=== PATIENT | female | born 1985 | race Caucasian/White ===

== ENCOUNTER 2017-01-09 21:11 | Emergency (ER) | payer BC, OTHER ==
[2017-01-09 21:24] VITALS: BP 123/71
--- NOTE | 2017-01-09 22:29 | EDM.PDOC ---
ED HPI GENERAL MEDICAL PROBLEM - General Chief Complaint: Allergic Reaction Stated Complaint: POSS REACTION TO CHEMO Time Seen by Provider: 01/09/17 21:37 Source of Information: Reports: Patient, Family (), RN Notes Reviewed History Limitations: Reports: No Limitations - History of Present Illness INITIAL COMMENTS - FREE TEXT/NARRATIVE: The patient states that she self-injects methotrexate weekly for treatment of her psoriasis, since September 2016, prescribed per Dr. Marie from [facility]. Today around 20:00 she injected her methotrexate in her right inner thigh, using a needle about 1.5 inches in length. Shortly thereafter, she developed a burning sensation at the injection site which has since spread down to just below her right knee, and she has also noticed a yellow discoloration immediately adjacent to the injection site. No prior similar reactions. The patient denies having any other problems, including rash, pruritus, dyspnea , shortness of breath, or angioedema. Right Upper Leg Pain Score (Numeric/FACES): 5 - Related Data Allergies Allergy/AdvReac Type Severity Reaction Status Date / Time azathioprine Allergy Nausea and Verified 01/09/17 21:17 Vomiting nickel Allergy Rash Verified 01/09/17 21:17 Home Meds: Home Meds FLUoxetine [PROzac] 20 mg PO DAILY 10/03/15 [History] Acetaminophen/HYDROcodone [Lortab 500-5 MG] 1 tab PO Q6H #20 tablet 11/28/15 [Rx ] Dicyclomine HCl [Bentyl] 20 mg PO Q6HR #20 tablet 11/28/15 [Rx] Mesalamine [Lialda] 4 tab PO DAILY 11/28/15 [History] Acetaminophen/HYDROcodone [[place] 325-5 MG] 1 - 2 tab PO Q6H PRN #15 tablet 06/25 [Rx] Prednisone [IMW: Prednisone] 30 mg PO DAILY 06/25/16 [History] Past Medical History HEENT History: Reports: Impaired Vision Other HEENT History: wears glasses Gastrointestinal History: Reports: Inflammatory Bowel Disease (Crohn disease and ulcerative colitis) 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 OB/BYN History: pre menopausal dysphoric disorder, breast mass, dysmenorrhea, menorrhagia, STD Neurological History: Reports: Migraines, Seizure (x 1) Psychiatric History: Reports: Mood Swings Endocrine/Metabolic History: Reports: Obesity/BMI 30+ Immunologic History: Reports: Other (See Below) (Psoriasis) - Past Surgical History GI Surgical History: Reports: Appendectomy, Colonoscopy, EGD Female Surgical History: Reports: Hysterectomy Social & Family History - Tobacco Use Smoking Status *Q: Current Every Day Smoker Years of Tobacco use: 15 Packs/Tins Daily: 0.5 Second Hand Smoke Exposure: Yes - Caffeine Use Caffeine Use: Reports: Coffee - Alcohol Use Alcohol Use History: Yes Alcohol Use Frequency: Socially - Recreational Drug Use Recreational Drug Use: Yes Drug Use in Last 12 Months: Yes Recreational Drug Type: Reports: Marijuana/Hashish Recreational Drug Use Frequency: Socially - Living Situation & Occupation Living situation: Reports: , with Spouse, with Family (2 kids) 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) ED ROS ALLERGIC REACTION - Review of Systems Review Of Systems: See Below Constitutional: Reports: No Symptoms HEENT: Reports: No Symptoms Respiratory: Reports: No Symptoms Cardiovascular: Reports: No Symptoms Endocrine: Reports: No Symptoms GI/Abdominal: Reports: No Symptoms : Reports: No Symptoms Musculoskeletal: Reports: No Symptoms Skin: Reports: No Symptoms Neurological: Reports: No Symptoms Psychiatric: Reports: No Symptoms Hematologic/Lymphatic: Reports: No Symptoms Immunologic: Reports: No Symptoms ED EXAM GENERAL NO PERIP PULSE - Physical Exam Exam: See Below Exam Limited By: No Limitations General Appearance: Alert, WD/WN, No Apparent Distress Eye Exam: Bilateral Eye: Normal Inspection Ears: Normal External Exam, Hearing Grossly Normal Nose: Normal Inspection, No Blood Throat/Mouth: Normal Inspection, Normal Lips, Normal Voice, No Airway Compromise Head: Atraumatic, Normocephalic Neck: Normal Inspection, Full Range of Motion Respiratory/Chest: No Respiratory Distress, Lungs Clear, Normal Breath Sounds, No Accessory Muscle Use Cardiovascular: Normal Peripheral Pulses, Regular Rate, Rhythm, No Gallop, No JVD, No Murmur, No Rub GI/Abdominal: Normal Bowel Sounds, Soft, Non-Tender, No Organomegaly, No Distention, No Abnormal Bruit, No Mass (Female) Exam: Deferred Rectal (Female) Exam: Deferred Back Exam: Normal Inspection, Full Range of Motion, NT Extremities: Normal Inspection, Normal Range of Motion, No Pedal Edema, Normal Capillary Refill, Other (Approximately 2 cm patch of yellow skin on the right inner 5 adjacent to a visible injection site. Nonpalpable.) Neurological: Alert, Oriented, Normal Cognition, No Motor/Sensory Deficits Psychiatric: Normal Affect Skin Exam: Warm, Dry, Intact, Normal Color, No Rash Lymphatic: No Adenopathy Course - Vital Signs Last Recorded V/S: Last Vital Signs Temp 36.7 C 01/09/17 21:18 Pulse 71 01/09/17 21:18 Resp 16 01/09/17 21:18 BP 123/71 01/09/17 21:18 Pulse Ox 97 01/09/17 21:18 - Re-Assessments/Exams Free Text/Narrative Re-Assessment/Exam: 01/09/17 22:24 The patient states that she has a burning sensation to the injection site on her right inner thigh that is spreading, as well as a yellow discoloration to the injection site. The medical literature indicates a 3-10% incidence of a burning sensation to the injection site her methotrexate, and a less than 1% hyperpigmentation, however, I don't believe that the yellowish discoloration is hyperpigmentation. The patient points out, however, that the methotrexate itself is yellow, so perhaps this is some skin infiltration. I find the patient that there is no way that we can remove the methotrexate, and I don't believe any treatment is required, as this is not allergic reaction. I would have the patient followup with her prescribing physician, Dr. Marie, in the morning. Departure - Departure Time of Disposition: 22:25 Disposition: Home, Self-Care 01 Condition: good Clinical Impression: Adverse reaction to antineoplastic and immunosuppressive drugs - Discharge Information Instructions: Drug Allergy, [id number] Forms: ED Department Discharge Additional Instructions: You were seen in the emergency room for a burning sensation to your right inner thigh, spreading, and a yellowish discoloration to the injection site of your methotrexate. The literature indicates that a burning sensation can occur in 3-10% of people who inject methotrexate. The literature indicates that less than 1% of people can have hyperpigmentation , although it is more likely that the yellowish discoloration at your injection site is infiltration of the methotrexate into your skin. These reactions are considered "adverse reactions", not allergic reactions. No medical treatment is required. We recommend that you notify Dr. Marie of your experience, in the morning. If any other problems, please do not hesitate to return to the ER.
== END 2017-01-09 22:41 | disposition home or self-care (01) ==
LOC: JD.ED 21:11
DX: T45.1X5A Adverse effect of antineoplastic and immunosuppressive drugs, initial encounter (principal); E66.9 Obesity, unspecified; Z90.49 Acquired absence of other specified parts of digestive tract; Z90.710 Acquired absence of both cervix and uterus; Z98.890 Other specified postprocedural states; F17.210 Nicotine dependence, cigarettes, uncomplicated; Z79.899 Other long term (current) drug therapy; Z88.8 Allergy status to other drugs, medicaments and biological substances
CPT/HCPCS: 99282; 99283

== ENCOUNTER 2017-08-26 14:48 | Emergency (ER) | payer BC ==
[2017-08-26] MEDS ORDERED: HYDROmorphone 1 MG/ML Syringe IVPUSH ONE (15:28)
[2017-08-26] MEDS ORDERED: Ondansetron 4 MG/2 ML SDV IVPUSH ONE (15:28)
[2017-08-26] MEDS ORDERED: Sodium Chloride 0.9% 1,000 ML IV SCH (15:30)
--- NOTE | 2017-08-26 15:40 | EDM.PDOC ---
ED HPI GENERAL MEDICAL PROBLEM - General Chief Complaint: Gastrointestinal Problem Stated Complaint: CROHN'S ISSUES Time Seen by Provider: 08/26/17 15:12 Source of Information: Reports: Patient History Limitations: Reports: No Limitations - History of Present Illness INITIAL COMMENTS - FREE TEXT/NARRATIVE: Patient is a 32-year-old female with a history of Crohn's disease and also ulcerative colitis. States she had had a flare of her Crohn's this past Friday with heavy bleeding from her rectum. Bleeding has lessened since initial onset. She's had one bowel movement today with faint blood present. Of course of frequency of defecation is worsen with eating. She's had low appetite since onset. She does receive chemotherapy shots weekly along with methotrexate and Humira. left abdomen/right groin Pain Score (Numeric/FACES): 5 - Related Data Allergies Allergy/AdvReac Type Severity Reaction Status Date / Time azathioprine Allergy Nausea and Verified 08/26/17 15:03 Vomiting nickel Allergy Rash Verified 08/26/17 15:03 Home Meds: Home Meds FLUoxetine [PROzac] 20 mg PO DAILY 10/03/15 [History] Acetaminophen/HYDROcodone [[place]une[place] 325-5 MG] 1 tab PO Q6H PRN #12 tablet 08/26/17 [Rx] Adalimumab [Humira Crohn's] 40 mg SQ ASDIRECTED 08/26/17 [History] [place] 1 tab PO ASDIRECTED 08/26/17 [History] Methotrexate Sodium [Methotrexate] 250 mg SQ WEEKLY 08/26/17 [History] Past Medical History HEENT History: Reports: Impaired Vision Other HEENT History: wears glasses Respiratory History: Reports: Asthma Gastrointestinal History: Reports: Inflammatory Bowel Disease, Other (See Below) Other Gastrointestinal History: chrohn's disease 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 OB/BYN History: pre menopausal dysphoric disorder, breast mass, dysmenorrhea, menorrhagia, STD Neurological History: Reports: Migraines, Seizure Psychiatric History: Reports: Mood Swings Other Psychiatric History: fatigue Endocrine/Metabolic History: Reports: Obesity/BMI 30+ Immunologic History: Reports: Other (See Below) Other Immunologic History: is on chem drugs for chrohn's - Past Surgical History GI Surgical History: Reports: Appendectomy, Colonoscopy, EGD Female Surgical History: Reports: Hysterectomy Social & Family History - Family History Family Medical History: Noncontributory - Tobacco Use Smoking Status *Q: Current Every Day Smoker Years of Tobacco use: 15 Packs/Tins Daily: 0.5 Second Hand Smoke Exposure: Yes - Caffeine Use Caffeine Use: Reports: None - Alcohol Use Days Per Week of Alcohol Use: 0 Number of Drinks Per Day: 0 Total Drinks Per Week: 0 - Recreational Drug Use Recreational Drug Use: Yes Drug Use in Last 12 Months: Yes Recreational Drug Type: Reports: Marijuana/Hashish Recreational Drug Use Frequency: Daily - Living Situation & Occupation Living situation: Reports: , with Spouse, with Family (2 kids) 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 Denies: Fever, Chills HEENT: Reports: No Symptoms Respiratory: Reports: No Symptoms Cardiovascular: Reports: No Symptoms GI/Abdominal: Reports: Abdominal Pain, Bloody Stool, Constipation, Diarrhea, Decreased Appetite. Denies: Hematemesis, Nausea, Vomiting : Reports: No Symptoms Musculoskeletal: Reports: No Symptoms Neurological: Reports: No Symptoms ED EXAM, GI/ABD - Physical Exam Exam: See Below Exam Limited By: No Limitations General Appearance: Alert, WD/WN, No Apparent Distress Ears: Hearing Grossly Normal Nose: Normal Inspection Throat/Mouth: Normal Voice, No Airway Compromise Head: Atraumatic, Normocephalic Neck: Normal Inspection, Supple Respiratory/Chest: No Respiratory Distress, Lungs Clear, Normal Breath Sounds, No Accessory Muscle Use, Chest Non-Tender Cardiovascular: Normal Peripheral Pulses, Regular Rate, Rhythm GI/Abdominal Exam: Normal Bowel Sounds, Soft, No Organomegaly, Distended, Tender (Throughout) Rectal (Female) Exam: Deferred Back Exam: Normal Inspection. No: CVA Tenderness (L), CVA Tenderness (R) Neurological: Alert, Oriented, CN II-XII Intact, Normal Cognition, No Motor/ Sensory Deficits Psychiatric: Normal Affect, Normal Mood Skin Exam: Warm, Dry, Intact, Normal Color, No Rash Course - Vital Signs Last Recorded V/S: Last Vital Signs Temp 97.5 F 08/26/17 14:52 Pulse 57 L 08/26/17 18:30 Resp 16 08/26/17 18:30 BP 107/72 08/26/17 18:30 Pulse Ox 96 08/26/17 18:30 - Orders/Labs/Meds Orders: Active Orders 24 hr Category Date Time Status Peripheral IV Care [RC] . DIRECTED Care 08/26/17 15:28 Active Peripheral IV Insertion Adult [OM.PC] Stat Oth 08/26/17 15:27 Ordered Labs: Laboratory Tests 08/26/17 08/26/17 08/26/17 Range/Units 16:00 16:00 17:15 WBC 6.66 (3.98-10.04) K/mm3 RBC 4.22 (3.98-5.22) M/mm3 Hgb 13.3 (11.2-15.7) gm/L Hct 38.8 (34.1-44.9) % MCV 91.9 (79.4-94.8) fl MCH 31.5 (25.6-32.2) pg MCHC 34.3 (32.2-35.5) g/dl RDW Std Deviation 44.3 (36.4-46.3) fL Plt Count 181 L (182-369) K/mm3 MPV 10.6 (9.4-12.3) fl Neut % (Auto) 52.0 (34.0-71.1) % Lymph % (Auto) 39.6 (19.3-51.7) % [place] % (Auto) 6.5 (4.7-12.5) % Eos % (Auto) 1.5 (0.7-5.8) Baso % (Auto) 0.2 (0.1-1.2) % Neut # (Auto) 3.47 (1.56-6.13) K/mm3 Lymph # (Auto) 2.64 (1.18-3.74) K/mm3 Marshall # (Auto) 0.43 H (0.24-0.36) K/mm3 Eos # (Auto) 0.10 (0.04-0.36) K/mm3 Baso # (Auto) 0.01 (0.01-0.08) K/mm3 Sodium 139 (136-145) mEq/L Potassium 4.1 (3.5-5.1) mEq/L Chloride 106 (98-107) mEq/L Carbon Dioxide 28 (21-32) mEq/L Anion Gap 9.1 (5-15) BUN 10 (7-18) mg/dL Creatinine 0.7 (0.55-1.02) mg/dL Est Cr Clr Drug Dosing 111.16 mL/min Estimated GFR (MDRD) > 60 (>60) mL/min BUN/Creatinine Ratio 14.3 (14-18) Glucose 88 (74-106) mg/dL Calcium 8.7 (8.5-10.1) mg/dL Total Bilirubin 0.5 (0.2-1.0) mg/dL AST 29 (15-37) U/L ALT 44 (14-59) U/L Alkaline Phosphatase 36 L (46-116) U/L C-Reactive Protein < 0.2 (<1.0) mg/dL Total Protein 6.6 (6.4-8.2) g/dl Albumin 3.6 (3.4-5.0) g/dl Globulin 3.0 gm/dL Albumin/Globulin Ratio 1.2 (1-2) Lipase 190 (73-393) U/L Urine Color Yellow (Yellow) Urine Appearance Clear (Clear) Urine pH 7.0 (5.0-8.0) Ur Specific [place] 1.020 (1.005-1.030) Urine Protein Negative (Negative) Urine Glucose (UA) Negative (Negative) Urine Ketones Negative (Negative) Urine Occult Blood Negative (Negative) Urine Nitrite Negative (Negative) Urine Bilirubin Negative (Negative) Urine Urobilinogen 0.2 (0.2-1.0) Ur Leukocyte Esterase Negative (Negative) Urine RBC 0-5 (0-5) /hpf Urine WBC 0-5 (0-5) /hpf Ur Epithelial Cells 0-5 (0-5) /hpf Amorphous Sediment Few H (NOT SEEN) /hpf Urine Bacteria Few (FEW) /hpf Urine Mucus Not seen (FEW) /hpf Meds: Medications Discontinued Medications Generic Name Dose Route Start Last Admin Trade Name Freq PRN Reason Stop Dose Admin Diatrizoate Meglum/Diatrizoate Sod 90 ml 08/26/17 17:19 08/26/17 17:43 Gastrografin 37% PO 08/26/17 17:20 90 ml ONETIME ONE Administration Hydromorphone HCl 1 mg 08/26/17 15:28 08/26/17 16:04 Dilaudid IVPUSH 08/26/17 15:29 1 mg ONETIME ONE Administration Hydromorphone HCl 0.5 mg 08/26/17 18:11 08/26/17 18:15 Dilaudid IVPUSH 08/26/17 18:12 0.5 mg ONETIME ONE Administration Sodium Chloride 1,000 mls @ 250 mls/hr 08/26/17 15:30 08/26/17 16:06 Normal Saline IV 250 mls/hr ASDIRECTED BETSY Administration Iopamidol 125 ml 08/26/17 17:19 08/26/17 17:44 Isovue-300 (61%) IVPUSH 08/26/17 17:20 125 ml ONETIME ONE Administration Ondansetron HCl 4 mg 08/26/17 15:28 08/26/17 16:02 Zofran IVPUSH 08/26/17 15:29 4 mg ONETIME ONE Administration Sodium Chloride 10 ml 08/26/17 15:27 08/26/17 17:44 Saline Flush FLUSH 10 ml ASDIRECTED PRN Administration Keep Vein Open - Re-Assessments/Exams Free Text/Narrative Re-Assessment/Exam: Chest x-ray revealed no acute findings. X-ray of the abdomen revealed a few air-fluid levels. Nonspecific stool pattern. Due to patient's pain on examination and history of blood in her stool with ulcerative and Crohn's disease. . Will go ahead and obtain CT of the abdomen and pelvis with oral and IV contrast.Patient request CT of the abdomen and pelvis Labs pending. Labs reviewed: CBC essentially normal. Chemistry panel essentially normal. CRP less than 0.2. Lipase 190. UA negative for infection. CT abdomen and pelvis with IV contrast impression: No acute findings. Discuss results of labs and also CT study with patient. Pain was under control but coming back now. Will order Dilaudid 0.5 mg IVP. Will discharge home with instructions as documented. Departure - Departure Time of Disposition: 18:11 Disposition: Home, Self-Care 01 Condition: Good Clinical Impression: Abdominal pain, Blood per rectum Crohns disease Qualifiers: Gastrointestinal tract location: unspecified location Digestive disease complication type: unspecified complication Qualified Code(s): K50.919 - Crohn' s disease, unspecified, with unspecified complications Ulcerative (chronic) enterocolitis Qualifiers: Digestive disease complication type: unspecified complication Qualified Code(s) : K51.019 - Ulcerative (chronic) pancolitis with unspecified complications - Discharge Information Prescriptions: Acetaminophen/HYDROcodone [Cuney 325-5 MG] 1 tab PO Q6H PRN #12 tablet PRN Reason: Pain (Severe 7-10) Instructions: Abdominal Pain, Adult, [id number] Referrals: Nel Dominguez COLLAR FELLER [Primary Care Provider] - Forms: ED Department Discharge, ED Return to Work/School Form Additional Instructions: As discussed CT of the abdomen and pelvis along with labs did not reveal any concerning findings. For pain take Cuney one tab every 6 hours as needed for severe pain. Push the fluids. Eat a low residue diet. Follow-up with primary care provider first part of next week for reevaluation as needed. Return to the ED if you develop any new or worsening symptoms. - My Orders Last 24 Hours: My Active Orders 08/26/17 15:27 Peripheral IV Insertion Adult [OM.PC] Stat 08/26/17 15:28 Peripheral IV Care [RC] . DIRECTED - Assessment/Plan Last 24 Hours: My Active Orders 08/26/17 15:27 Peripheral IV Insertion Adult [OM.PC] Stat 08/26/17 15:28 Peripheral IV Care [RC] . DIRECTED
[2017-08-26] MEDS: Sodium Chloride 0.9% 10 ML Syringe FLUSH PRN ×2 (16:00→17:44)
--- NOTE | 2017-08-26 16:44 | CR ---
Abdominal series: Supine and upright views of the abdomen were obtained as well as frontal view of the chest. Comparison: Previous abdominal x-ray of 06/25/16, no previous chest x-ray. Heart size and mediastinum are normal. Lungs are clear. No free air is seen. Bowel gas pattern appears normal. Calcifications are seen within the pelvis most likely representing phleboliths. No soft tissue abnormality is seen. Impression: 1. Nonspecific abdominal series. Diagnostic code #1
[2017-08-26] MEDS ORDERED: Diatrizoate Meglumine/Diatrizoate Sodium 37% 120 ML Bottle PO ONE (17:19)
[2017-08-26] MEDS ORDERED: Iopamidol 612 MG/ML 150 ML Bottle IVPUSH ONE (17:19)
[2017-08-26] MEDS ORDERED: HYDROmorphone 0.5 MG/0.5 ML Syringe IVPUSH ONE (18:11)
[2017-08-26 18:58] VITALS: BP 107/72
--- NOTE | 2017-08-27 09:15 | CT ---
CT abdomen and pelvis Technique: Multiple axial sections were obtained from above the dome of the diaphragm inferiorly through the pubic symphysis. Intravenous and oral contrast has been given. Delayed images were also obtained through the bladder. Comparison: Prior abdominal x-ray of 06/25/16 is available as well as previous abdominal and pelvic CT of 08/10/15. Findings: Visualized lung bases show nothing acute. Liver shows no focal parenchymal abnormality. Gallbladder contains no calcified gallstones. Spleen appears within normal limits. Soft tissue nodule is identified next to the spleen compatible with accessory splenic tissue. Adrenal glands show no nodule. Pancreas is within normal limits. Kidneys show symmetric contrast enhancement without hydronephrosis or mass. No pelvic mass or adenopathy is seen. Appendix not visualized with certainty. Slight increased stool noted within the right colon. No free fluid or inflammatory change is seen. No bowel dilatation is seen. Delayed images show contrast within the bladder and within the distal ureters. Bone window settings were reviewed which appear within normal limits for the patient's age. Impression: 1. Nothing acute is seen on CT study of the abdomen and pelvis. Diagnostic code #1 I agree with preliminary report issued by [facility] ([facility] report finalized on 08/26/17, 7:01 PM Central Time)
== END 2017-08-26 18:30 | disposition home or self-care (01) ==
LOC: JD.ED 14:48
DX: K50.919 Crohn's disease, unspecified, with unspecified complications (principal); K62.5 Hemorrhage of anus and rectum; F17.210 Nicotine dependence, cigarettes, uncomplicated; Z88.8 Allergy status to other drugs, medicaments and biological substances; Z79.899 Other long term (current) drug therapy
CPT/HCPCS: 36415; 74022; 74177; 80053; 81001; 83690; 85025; 86140; 96361; 96374; 96375; 96376; 99285; J1170; J2405; J7040; J7050; Q9963; Q9967; 99284

== ENCOUNTER 2018-03-06 15:29 | Emergency (ER) | payer BC ==
[2018-03-06] MEDS ORDERED: Ondansetron 4 MG/2 ML SDV IVPUSH ONE (15:59)
[2018-03-06] MEDS ORDERED: Sodium Chloride 0.9% 10 ML Syringe FLUSH PRN (15:59)
[2018-03-06] MEDS ORDERED: Sodium Chloride 0.9% 1,000 ML IV STA (15:59)
[2018-03-06] MEDS ORDERED: Sodium Chloride 0.9% 1,000 ML IV ONE (18:14)
--- NOTE | 2018-03-06 18:48 | EDM.PDOC ---
ED HPI GENERAL MEDICAL PROBLEM - General Chief Complaint: Abdominal Pain Stated Complaint: CHRONES FLAREUP Time Seen by Provider: 03/06/18 15:43 Source of Information: Reports: Patient History Limitations: Reports: No Limitations - History of Present Illness INITIAL COMMENTS - FREE TEXT/NARRATIVE: The patient presents with a Crohn's flair. This stared a few days ago. She has generalized abdominal pain with some bloody diarrhea. She just found out she is allergic to January and she is being switched to another biologic March 27. She has no fever, chills, cough, chest pain, or dysuria. She has nausea and no vomiting. She has never needed surgery yet. Onset: Gradual Duration: Day(s): Location: Reports: Abdomen Quality: Reports: Ache Severity: Moderate Improves with: Reports: None Worsens with: Reports: None Associated Symptoms: Reports: Nausea/Vomiting. Denies: Chest Pain, Cough, Fever /Chills, Headaches, Shortness of Breath Abdomen Pain Score (Numeric/FACES): 4 - Related Data Allergies Allergy/AdvReac Type Severity Reaction Status Date / Time adalimumab [From Humira] Allergy Itching Verified 03/06/18 15:45 azathioprine Allergy Nausea and Verified 08/26/17 15:03 Vomiting nickel Allergy Rash Verified 08/26/17 15:03 Home Meds: Home Meds FLUoxetine [PROzac] 20 mg PO DAILY 10/03/15 [History] Methotrexate 5 tab PO ASDIRECTED 03/06/18 [History] Past Medical History HEENT History: Reports: Impaired Vision Other HEENT History: wears glasses Respiratory History: Reports: Asthma Gastrointestinal History: Reports: Inflammatory Bowel Disease, Other (See Below) Other Gastrointestinal History: chrohn's disease DANDY OPERATOR History: Reports: Other DANDY OPERATOR History: pre menopausal dysphoric disorder, breast mass, dysmenorrhea, menorrhagia, STD Neurological History: Reports: Migraines, Seizure Psychiatric History: Reports: Mood Swings Other Psychiatric History: fatigue Endocrine/Metabolic History: Reports: Obesity/BMI 30+ Immunologic History: Reports: Other (See Below) Other Immunologic History: is on chem drugs for chrohn's - Past Surgical History GI Surgical History: Reports: Appendectomy, Colonoscopy, EGD Female Surgical History: Reports: Hysterectomy Social & Family History - Family History Family Medical History: Noncontributory - Tobacco Use Smoking Status *Q: Current Every Day Smoker Years of Tobacco use: 20 Packs/Tins Daily: 0.5 - Caffeine Use Caffeine Use: Reports: Coffee, Soda - Recreational Drug Use Recreational Drug Type: Reports: Marijuana/Hashish - Living Situation & Occupation Living situation: Reports: , with Spouse, with Family (2 kids) 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 Denies: Vomiting : Reports: No Symptoms Musculoskeletal: Reports: No Symptoms Neurological: Reports: No Symptoms ED EXAM, GI/ABD - Physical Exam Exam: See Below Exam Limited By: No Limitations General Appearance: Alert, No Apparent Distress Ears: Normal External Exam Nose: Normal Inspection Head: Atraumatic, Normocephalic Neck: Normal Inspection Respiratory/Chest: No Respiratory Distress, Lungs Clear, Normal Breath Sounds Cardiovascular: Regular Rate, Rhythm, No Edema, No Murmur GI/Abdominal Exam: Soft, No Organomegaly, No Mass, Tender (Moderate generalized tenderness) Back Exam: Normal Inspection Extremities: Normal Inspection Course - Vital Signs Last Recorded V/S: Last Vital Signs Temp 98.5 F 03/06/18 15:52 Pulse 62 03/06/18 15:52 Resp 20 03/06/18 15:52 BP 121/79 03/06/18 15:52 Pulse Ox 96 03/06/18 15:52 - Orders/Labs/Meds Orders: Active Orders 24 hr Category Date Time Status Peripheral IV Care [RC] . DIRECTED Care 03/06/18 15:59 Active Abdomen Series w Chest 1V [CR] Stat Exams 03/06/18 15:59 Taken UA W/MICROSCOPIC [URIN] Stat Lab 03/06/18 15:59 Ordered Sodium Chloride 0.9% [Normal Saline] 1,000 ml Med 03/06/18 18:14 Active IV ONETIME Sodium Chloride 0.9% [Saline Flush] Med 03/06/18 15:59 Active 10 ml FLUSH ASDIRECTED PRN ED Antiemetic Medication Reflex [OM.PC] Stat Oth 03/06/18 15:59 Ordered Peripheral IV Insertion Adult [OM.PC] Stat Oth 03/06/18 15:59 Ordered Medication Orders Sodium Chloride (Normal Saline) 1,000 mls @ 1,000 mls/hr IV ONETIME ONE Stop: 03/06/18 19:13 Sodium Chloride (Saline Flush) 10 ml FLUSH ASDIRECTED PRN PRN Reason: Keep Vein Open Last Admin: 03/06/18 16:25 Dose: 10 ml Labs: Laboratory Tests 03/06/18 03/06/18 03/06/18 Range/Units 16:25 16:25 16:25 WBC 5.62 (3.98-10.04) K/mm3 RBC 3.86 L (3.98-5.22) M/mm3 Hgb 11.7 (11.2-15.7) gm/L Hct 34.6 (34.1-44.9) % MCV 89.6 (79.4-94.8) fl MCH 30.3 (25.6-32.2) pg MCHC 33.8 (32.2-35.5) g/dl RDW Std Deviation 41.9 (36.4-46.3) fL Plt Count 204 (182-369) K/mm3 MPV 10.6 (9.4-12.3) fl Neut % (Auto) 48.0 (34.0-71.1) % Lymph % (Auto) 40.4 (19.3-51.7) % Fleming % (Auto) 9.8 (4.7-12.5) % Eos % (Auto) 1.4 (0.7-5.8) Baso % (Auto) 0.4 (0.1-1.2) % Neut # (Auto) 2.70 (1.56-6.13) K/mm3 Lymph # (Auto) 2.27 (1.18-3.74) K/mm3 Fleming # (Auto) 0.55 H (0.24-0.36) K/mm3 Eos # (Auto) 0.08 (0.04-0.36) K/mm3 Baso # (Auto) 0.02 (0.01-0.08) K/mm3 Sodium 141 (136-145) mEq/L Potassium 3.6 (3.5-5.1) mEq/L Chloride 107 (98-107) mEq/L Carbon Dioxide 26 (21-32) mEq/L Anion Gap 11.6 (5-15) BUN 11 (7-18) mg/dL Creatinine 0.8 (0.55-1.02) mg/dL Est Cr Clr Drug Dosing 96.36 mL/min Estimated GFR (MDRD) > 60 (>60) mL/min BUN/Creatinine Ratio 13.8 L (14-18) Glucose 81 (74-106) mg/dL Calcium 8.5 (8.5-10.1) mg/dL Total Bilirubin 0.4 (0.2-1.0) mg/dL AST 22 (15-37) U/L ALT 19 (14-59) U/L Alkaline Phosphatase 34 L (46-116) U/L Total Protein 6.6 (6.4-8.2) g/dl Albumin 3.7 (3.4-5.0) g/dl Globulin 2.9 gm/dL Albumin/Globulin Ratio 1.3 (1-2) Lipase 109 (73-393) U/L HCG, Qual Negative (NEGATIVE) Meds: Medications Generic Name Dose Route Start Last Admin Trade Name Freq PRN Reason Stop Dose Admin Sodium Chloride 1,000 mls @ 1,000 mls/hr 03/06/18 18:14 Normal Saline IV 03/06/18 19:13 ONETIME ONE Sodium Chloride 10 ml 03/06/18 15:59 03/06/18 16:25 Saline Flush FLUSH 10 ml ASDIRECTED PRN Administration Keep Vein Open Discontinued Medications Generic Name Dose Route Start Last Admin Trade Name Freq PRN Reason Stop Dose Admin Sodium Chloride 1,000 mls @ 1,000 mls/hr 03/06/18 15:59 03/06/18 16:29 Normal Saline IV 03/06/18 16:58 1,000 mls/hr .BOLUS STA Administration Ondansetron HCl 4 mg 03/06/18 15:59 03/06/18 16:29 Zofran IVPUSH 03/06/18 16:00 4 mg ONETIME ONE Administration - Re-Assessments/Exams Free Text/Narrative Re-Assessment/Exam: 03/06/18 18:47 I ordered an IV NS 1L bolus, zofran 4mg IV, labs, and an abdominal x-ray. Her CBC and CMP look good. Her x-ray shows a nonspecific bowel gas pattern. She feels better but she would like another liter of fluids. I have ordered that and I will discharge her home. Departure - Departure Time of Disposition: 18:50 Disposition: Home, Self-Care 01 Condition: Good Clinical Impression: Crohn disease Qualifiers: Gastrointestinal tract location: unspecified location Digestive disease complication type: unspecified complication Qualified Code(s): K50.919 - Crohn' s disease, unspecified, with unspecified complications - Discharge Information *PRESCRIPTION DRUG MONITORING PROGRAM REVIEWED*: Not Applicable *COPY OF PRESCRIPTION DRUG MONITORING REPORT IN PATIENT TANNER: Not Applicable Referrals: Kamar Hodgson MD [Primary Care Provider] - Additional Instructions: Take your medicine as prescribed. Follow up with Dr Hodgson as scheduled. Drink plenty of fluids. Please return if you are worse. - My Orders Last 24 Hours: My Active Orders 03/06/18 15:59 Peripheral IV Care [RC] . DIRECTED Abdomen Series w Chest 1V [CR] Stat UA W/MICROSCOPIC [URIN] Stat Sodium Chloride 0.9% [Saline Flush] 10 ml FLUSH ASDIRECTED PRN ED Antiemetic Medication Reflex [OM.PC] Stat Peripheral IV Insertion Adult [OM.PC] Stat 03/06/18 18:14 Sodium Chloride 0.9% [Normal Saline] 1,000 ml IV ONETIME - Assessment/Plan Last 24 Hours: My Active Orders 03/06/18 15:59 Peripheral IV Care [RC] . DIRECTED Abdomen Series w Chest 1V [CR] Stat UA W/MICROSCOPIC [URIN] Stat Sodium Chloride 0.9% [Saline Flush] 10 ml FLUSH ASDIRECTED PRN ED Antiemetic Medication Reflex [OM.PC] Stat Peripheral IV Insertion Adult [OM.PC] Stat 03/06/18 18:14 Sodium Chloride 0.9% [Normal Saline] 1,000 ml IV ONETIME
[2018-03-06 20:14] VITALS: BP 115/72
--- NOTE | 2018-03-09 10:03 | CR ---
Abdominal series: Supine and upright views of the abdomen were obtained as well as frontal view of the chest. Comparison: Previous abdominal x-ray of previous abdominal series of 08/26/17. Heart size and mediastinum are normal. Lungs are clear. No free air is seen. Bowel gas pattern is normal. Calcifications are seen within the pelvis which are compatible with phleboliths. No other abnormal calcifications are seen. No soft tissue abnormality is identified. Bony structures are unremarkable. Impression: 1. Unremarkable abdominal series with incidental findings as noted above. Diagnostic code #2
== END 2018-03-06 20:14 | disposition home or self-care (01) ==
LOC: SUPCPDRO 15:29 → JD.ED 15:29
DX: K50.919 Crohn's disease, unspecified, with unspecified complications (principal); F17.210 Nicotine dependence, cigarettes, uncomplicated; Z79.899 Other long term (current) drug therapy; Z88.8 Allergy status to other drugs, medicaments and biological substances
CPT/HCPCS: 36415; 74022; 80053; 83690; 84703; 85025; 96361; 96374; 99284; J2405; J7040; J7050

== ENCOUNTER 2019-02-02 08:29 | Day surgery (SDC) | payer BC, MEDICAID ==
--- NOTE | 2019-02-02 07:54 | PCM.PREANE ---
Preanesthetic Assessment - Anesthesia/Transfusion/Family Hx Anesthesia History: Prior Anesthesia Without Reaction Family History of Anesthesia Reaction: No Transfusion History: No Prior Transfusion(s) Intubation History: Unknown - Review of Systems General: No Symptoms Pulmonary: No Symptoms (Exercise induced asthma/smoker: less than 1ppd times 15 years quit smoking in November, but currently vapes and smokes marijuana three times a day for nausea, and pain.), Cough, Sputum Cardiovascular: No Symptoms, Palpitations (on occasion.), Lightheadedness ( positonal changes) Gastrointestinal: No Symptoms (GERD/History of Crohn's Disease-rectal bleeding) , Abdominal Pain (-11/01), Diarrhea Neurological: No Symptoms (lower back pain noted at -12/02), Headache (History of migraines), Seizure (History of last one 16 years ago (at the age 17)) Other: Reports: Easy Bruising, Depression, Anxiety - Physical Assessment NPO Status Date: 02/01/19 NPO Status Time: 23:00 Pulse: 73 O2 Sat by Pulse Oximetry: 97 Respiratory Rate: 16 Blood Pressure: 114/63 Temperature: 36.6 C Height: 1.68 m Weight: 91.626 kg ASA Class: 2 Mental Status: Alert & Oriented x3 Dentition: Reports: Normal Dentition, Implants (front tooth upper/solid), Caries Thyro-Mental Finger Breadths: 3 Mouth Opening Finger Breadths: 3 ROM/Head Extension: Full Lungs: Clear to Auscultation, Normal Respiratory Effort Cardiovascular: Regular Rate, Regular Rhythm, No Murmurs - Allergies Allergies/Adverse Reactions: Allergies Allergy/AdvReac Type Severity Reaction Status Date / Time adalimumab [From Humira] Allergy Itching Verified 02/01/19 14:26 azathioprine Allergy Nausea and Verified 02/01/19 14:26 Vomiting nickel Allergy Rash Verified 02/01/19 14:26 - Anesthesia Plan Pre-Op Medication Ordered: None - Acknowledgements Anesthesia Type Planned: General Anesthesia Pt an Appropriate Candidate for the Planned Anesthesia: Yes Alternatives and Risks of Anesthesia Discussed w Pt/Guardian: Yes Pt/Guardian Understands and Agrees with Anesthesia Plan: Yes PreAnesthesia Questionnaire HEENT History: Reports: Impaired Vision Other HEENT History: wears glasses Cardiovascular History: Reports: None Respiratory History: Reports: Asthma Gastrointestinal History: Reports: Inflammatory Bowel Disease, Other (See Below) Other Gastrointestinal History: crohn's disease, bloating, abdomnial pain, acid reflux, diarrhea, LUQ pain, hematochezia, ulcerative colitis Genitourinary History: Reports: Other (See Below) Other Genitourinary History: hydrosalpingx, pelvic mass, PMDD, left breast mass , dysmenorrhea 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 OB/BYN History: pre menopausal dysphoric disorder, breast mass, dysmenorrhea, menorrhagia, STD Musculoskeletal History: Reports: None Neurological History: Reports: Migraines, Seizure Psychiatric History: Reports: Mood Swings Other Psychiatric History: fatigue Endocrine/Metabolic History: Reports: Obesity/BMI 30+ Hematologic History: Reports: None Immunologic History: Reports: Other (See Below) Other Immunologic History: is on chem drugs for chrohn's Oncologic (Cancer) History: Reports: None Dermatologic History: Reports: None - Past Surgical History Head Surgeries/Procedures: Reports: None Cardiovascular Surgical History: Reports: None Respiratory Surgical History: Reports: None GI Surgical History: Reports: Appendectomy, Colonoscopy, EGD Female Surgical History: Reports: Hysterectomy Endocrine Surgical History: Reports: None Neurological Surgical History: Reports: None Musculoskeletal Surgical History: Reports: None Oncologic Surgical History: Reports: None Dermatological Surgical History: Reports: None - SUBSTANCE USE Smoking Status *Q: Current Every Day Smoker Recreational Drug Use History: Yes Recreational Drug Type: Reports: Marijuana/Hashish - HOME MEDS Home Medications: Home Meds FLUoxetine [PROzac] 20 mg PO DAILY 10/03/15 [History] Methotrexate 20 mg PO GAVIRIA 03/06/18 [History] Ustekinumab [Stelara] 90 mg SQ Q56D 05/02/18 [History] Albuterol [Ventolin HFA] 1 - 2 puff INH Q4H PRN 02/01/19 [History] Cyanocobalamin/Folic AC/Vit B6 [Folbee] 1 tab PO MOTUWETHFRSA 02/01/19 [History] Famotidine 40 mg PO DAILY 02/01/19 [History] Pantoprazole Sodium 40 mg PO DAILY 02/01/19 [History] - CURRENT (IN HOUSE) MEDS Current Meds: Current Medications Albuterol (Proventil Neb Soln) 2.5 mg NEB ONETIME PRN PRN Reason: bronchodilation Stop: 02/02/19 18:00 Lactated Ringer's (Ringers, Lactated) 1,000 mls @ 125 mls/hr IV ASDIRECTED BETSY Stop: 02/02/19 23:00 Lidocaine/Sodium Bicarbonate (Buffered Lidocaine 1% In Ns 8.4%) 0.25 ml IDERM ONETIME PRN PRN Reason: Prior to IV Start Stop: 02/02/19 18:00 Sodium Chloride (Saline Flush) 10 ml FLUSH ASDIRECTED PRN PRN Reason: Keep Vein Open Stop: 02/02/19 18:00 Discontinued Medications Cefazolin Sodium (Ancef) Confirm Administered Dose 2 gm .ROUTE .STK-MED ONE Stop: 02/02/19 07:37 Dexamethasone (Dexamethasone) Confirm Administered Dose 4 mg .ROUTE .STK-MED ONE Stop: 02/02/19 07:37 Fentanyl (Sublimaze) Confirm Administered Dose 250 mcg .ROUTE .STK-MED ONE Stop: 02/02/19 07:39 Hydromorphone HCl (Dilaudid) Confirm Administered Dose 0.5 mg .ROUTE .STK-MED ONE Stop: 02/02/19 07:38 Lidocaine HCl (Xylocaine-Mpf 1%) Confirm Administered Dose 6 mls @ as directed .ROUTE .STK-MED ONE Stop: 02/02/19 07:37 Lactated Ringer's (Ringers, Lactated) Confirm Administered Dose 1,000 mls @ as directed .ROUTE .STK-MED ONE Stop: 02/02/19 07:37 Ketorolac Tromethamine (Toradol) Confirm Administered Dose 30 mg .ROUTE .STK- MED ONE Stop: 02/02/19 07:37 Midazolam HCl (Versed 1 Mg/Ml) Confirm Administered Dose 2 mg .ROUTE .STK-MED ONE Stop: 02/02/19 07:39 Ondansetron HCl (Zofran) Confirm Administered Dose 4 mg .ROUTE .STK-MED ONE Stop: 02/02/19 07:37 Propofol (Diprivan 20 Ml) Confirm Administered Dose 200 mg .ROUTE .STK-MED ONE Stop: 02/02/19 07:38 Rocuronium [place] (Zemuron) Confirm Administered Dose 50 mg .ROUTE .STK-MED ONE Stop: 02/02/19 07:37
[~2019-02-02 08:29] MED LIST: Albuterol 0.083% 2.5 MG/3 ML Neb Soln NEB PRN; Dexamethasone 4 MG/ML SDV ONE; HYDROmorphone 0.5 MG/0.5 ML Syringe ONE; Ketorolac 30 MG/ML SDV ONE; Lactated Ringers 1,000 ML ONE; Lidocaine 1% 6 ML ONE; Lidocaine 1%/Sod Bicarbonate in NS 8.4% 1 ML Syringe IDERM PRN; Midazolam 1 MG/ML 2 ML SDV ONE; Ondansetron 4 MG/2 ML SDV ONE; Propofol 200 MG/20 ML SDV ONE; Rocuronium 50 MG/5 ML Vial ONE; Sodium Chloride 0.9% 10 ML Syringe FLUSH PRN; ceFAZolin 1 GM Vial ONE; fentaNYL 250 MCG/5 ML SDV ONE
[2019-02-02] MEDS: Lactated Ringers 1,000 ML IV SCH ×2 (08:55→12:48)
[2019-02-02] MEDS ORDERED: Bupivacaine 0.5% 30 ML SDV ONE (09:10)
[2019-02-02] MEDS ORDERED: Albuterol 0.083% 2.5 MG/3 ML Neb Soln NEB PRN (10:19)
[2019-02-02] MEDS ORDERED: fentaNYL 100 MCG/2 ML SDV IVPUSH PRN (10:19)
[2019-02-02] MEDS ORDERED: diphenhydrAMINE 50 MG/ML SDV IVPUSH PRN (10:19)
[2019-02-02] MEDS ORDERED: Ondansetron 4 MG/2 ML SDV IVPUSH PRN ×2 (10:19→10:53)
[2019-02-02] MEDS ORDERED: HYDROmorphone 0.5 MG/0.5 ML Syringe IVPUSH PRN (10:19)
[2019-02-02] MEDS ORDERED: ePHEDrine 50 MG/ML SDV IVPUSH PRN (10:19)
[2019-02-02] MEDS ORDERED: Phenylephrine/Normal Saline 100 MCG/ML 10 ML Syringe ONE (10:20)
[2019-02-02] MEDS ORDERED: Phenylephrine 1 MG in Sodium Chloride 0.9% 10 ML IV SCH (10:30)
[2019-02-02] MEDS ORDERED: Glycopyrrolate 0.2 MG/ML SDV ONE (10:36)
[2019-02-02] MEDS ORDERED: Neostigmine Methylsulfate 1 MG/ML 5 ML Syringe ONE (10:36)
[2019-02-02] MEDS ORDERED: Acetaminophen/oxyCODONE 325-5 MG Tab PO PRN (10:53)
[2019-02-02] MEDS ORDERED: Ketorolac 30 MG/ML SDV IVPUSH SCH (11:00)
--- NOTE | 2019-02-02 11:03 | PCM.OPNOTE ---
- General Post-Op/Procedure Note Date of Surgery/Procedure: 02/02/19 Operative Procedure(s): Laparoscopy, right salpingectomy, lysis of pelvic adhesions Findings: Right hydrosalpinx. Uterus and cervix surgically absent. Left ovary appeared normal however was adhered to the left pelvic sidewall. Right ovary appeared normal. The patient's ascending colon was somewhat lightly adherent to the right abdominal sidewall. Pre Op Diagnosis: 1. Right lower quadrant pelvic pain. 2. Right hydrosalpinx Post-Op Diagnosis: Same with pelvic adhesions in the right abdominal pelvic area. Other Anesthesia Type: Marcaine 0.5%5-10 mL local Primary Surgeon: Jono Hendrickson Secondary Surgeon: Shaun Kearns Anesthesia Provider: Faustina Canela Script Artist: Tracy Negron Script Artist: Edgar Mcclendon Reason Script Artist Was Necessary: Retraction, assistance, patient safety, quality of care. Pathology: Right fallopian tube Fluid Replacement, Intraop: 700 Output, Urine Amount: 150 EBL in mLs: 5 Surgical Drain/Tube Type: Nephrostomy Drain/Tube Comments:: Indwelling bladder catheterduring surgery onlyremoved at the end of the case. Complications: None Condition: Good Free Text/Narrative:: Surgery duration: 24 minutes Procedure: The patient was taken to the operating room and placed in supine position on the operative table. She had sequential compression stockings in place for DVT prophylaxis and had been given 2 g of Ancef IV for infection prophylaxis. She was administered general endotracheal anesthesia. After administration of anesthesia the patient was placed in dorsal lithotomy position and prepped and draped in usual fashion. An indwelling bladder catheter was placed. Patient is status post hysterectomy. Infraumbilical incision site and suprapubic site were then infiltrated with approximately 3-5 mL of Marcaine 0.5%. 5 mm incisions were made in these areas. Verres needle was placed in the infraumbilical incision site and pneumoperitoneum was established was in 3 L of CO2. The laparoscopic sleeve was then placed as was the scope. Under direct visualization the suprapubic site was developed with a 5 mm port. Pelvis was evaluated findings as above. Uterus, cervix, left fallopian tube and part of the right fallopian tube were found to be surgically absent. The right fallopian tube remnant was found to be dilated consistent with hydrosalpinx. Ovaries were functional in appearance. Left ovary somewhat adherent to left pelvic sidewall. This was not manipulated as patient is having no symptoms referable to this area. Patient had adhesions in the area of the right area of her appendectomy which was done during her private last . The liver edge was unremarkable and the gallbladder was visualized and found to be without inflammation. Anatomy otherwise was unremarkable. A third port in the right lower quadrant was then developed under direct visualization. Marcaine used for anesthesia. The right fallopian tube was elevated and mesosalpinx was then crossclamped and pedicle developed using the Enseal vessel closure system. No significant bleeding was noted. At this time the procedure was discontinued. Lower 2 port sites removed under direct visualization. No peritoneum was reversed and the upper sleeve was removed. No bleeding was encountered. Hemostasis was confirmed. The lower sleeve having been removed under direct visualization. The incisions were closed with single subcuticular interrupted suture of 3-0 Monocryl. The incisions were further approximated with Dermabond skin glue. The patient was awakened from general endotracheal anesthesia. She left the operating room in good condition.
--- NOTE | 2019-02-02 11:09 | PCM.POSTAN ---
POST ANESTHESIA ASSESSMENT - MENTAL STATUS Mental Status: Alert - VITAL SIGNS Pulse Rate: 97 SaO2: 97 (2LPM nasal cannula) Resp Rate: 17 Blood Pressure: 119/81 Temperature: 36.8 C - RESPIRATORY Respiratory Status: Respiratory Rate WNL, Airway Patent, O2 Saturation Stable, Supplemental Oxygen - CARDIOVASCULAR CV Status: Pulse Rate WNL, Blood Pressure Stable - GASTROINTESTINAL GI Status: No Symptoms - POST OP HYDRATION Hydration Status: Adequate & Stable
--- NOTE | 2019-02-02 11:41 | PCM48HPAN ---
Post Anesthesia Note - EVALUATION WITHIN 48HRS OF ANESTHETIC Vital Signs in Normal Range: Yes Patient Participated in Evaluation: Yes Respiratory Function Stable: Yes Airway Patent: Yes Cardiovascular Function Stable: Yes Hydration Status Stable: Yes Pain Control Satisfactory: Yes Nausea and Vomiting Control Satisfactory: Yes Mental Status Recovered: Yes
[2019-02-02 14:12] VITALS: BP 106/65
== END 2019-02-02 14:10 | disposition home or self-care (01) ==
LOC: JD.SDS 08:29
PROVIDERS: ATTEND Obstetrics & Gynecology
DX: N70.11 Chronic salpingitis (principal); N73.6 Female pelvic peritoneal adhesions (postinfective); K21.9 Gastro-esophageal reflux disease without esophagitis; J45.909 Unspecified asthma, uncomplicated; G43.909 Migraine, unspecified, not intractable, without status migrainosus; F17.210 Nicotine dependence, cigarettes, uncomplicated; F32.9 Major depressive disorder, single episode, unspecified; K50.90 Crohn's disease, unspecified, without complications; Z88.8 Allergy status to other drugs, medicaments and biological substances; Z79.899 Other long term (current) drug therapy; Z98.890 Other specified postprocedural states
CPT/HCPCS: 36415; 58661; 81001; 82565; 85025; 94640; A9270; J0690; J1100; J1170; J1885; J2001; J2250; J2370; J2405; J2704; J2710; J3010; J3490; J7120

== ENCOUNTER 2022-05-16 10:18 | Emergency (ER) | payer BC ==
[2022-05-16 10:32] VITALS: BP 133/82; PULSE 81
[2022-05-16] MEDS ORDERED: Sodium Chloride 0.9% 10 ML Syringe FLUSH PRN (11:11)
[2022-05-16 11:39] LABS: ESTIMATED GFR 74 mL/min (>60)
== END 2022-05-16 13:05 | disposition home or self-care (01) ==
LOC: JD.ED 10:18
DX: G40.909 Epilepsy, unspecified, not intractable, without status epilepticus (principal); F17.210 Nicotine dependence, cigarettes, uncomplicated; E66.9 Obesity, unspecified; Z68.27 Body mass index [BMI] 27.0-27.9, adult; Z88.8 Allergy status to other drugs, medicaments and biological substances; Z91.048 Other nonmedicinal substance allergy status; Z79.899 Other long term (current) drug therapy; Z90.49 Acquired absence of other specified parts of digestive tract
CPT/HCPCS: 36415; 70450; 70450-26; 80053; 81001; 83605; 84703; 85025; 86140; 93005; 93010; 99284; 99285; J3490

== ENCOUNTER 2022-12-12 08:46 | Emergency (ER) | payer MEDICAID ==
[2022-12-12] MEDS ORDERED: Sodium Chloride 0.9% 10 ML Syringe FLUSH PRN ×2 (09:39→09:45)
[2022-12-12] MEDS ORDERED: Ondansetron 4 MG/2 ML SDV IVPUSH ONE (09:39)
[2022-12-12] MEDS ORDERED: Sodium Chloride 0.9% 1,000 ML IV STA (09:39)
[2022-12-12] MEDS ORDERED: Iopamidol 755 Mg/ML 100 ML Bottle IVPUSH ONE (09:45)
[2022-12-12 11:03] VITALS: BP 104/71; PULSE 60
== END 2022-12-12 11:08 | disposition home or self-care (01) ==
LOC: JD.ED 08:46
DX: R10.12 Left upper quadrant pain (principal); J44.9 Chronic obstructive pulmonary disease, unspecified; J45.909 Unspecified asthma, uncomplicated; K21.9 Gastro-esophageal reflux disease without esophagitis; E66.9 Obesity, unspecified; Z68.30 Body mass index [BMI] 30.0-30.9, adult; Z88.8 Allergy status to other drugs, medicaments and biological substances
CPT/HCPCS: 36415; 74177; 80053; 81001; 83690; 85025; 96360; 99284; J3490; J7030; Q9967